=== PATIENT | female | born 1965 | race Caucasian/White ===

== ENCOUNTER → 2017-01-10 | Outpatient (CLI) | payer BC ==
[~2017-01-10] MED LIST: BENICAR; BPR150TCR; CIPR500T4 PO; DARI15TA4; FLUO20TA28; HYDR-3583 PO; LOSA1TAB19; MELO-195 PO; METF-761; METR500T21 PO; NAPR-243 PO; OLME1TAB14 PO; OLME1TAB25; ONDA4TAB11 PO; OXYC-12 PO; PHEN37.555 PO; PRM25T PO; SOLI10TA4 PO; WELLBUTRIN; [UNRECOGNIZED DRUG - OTHER]
--- NOTE | 2017-01-10 13:22 | Diagnostic Imaging Report ---
EXAMINATION: Bilateral screening mammogram 2D views with tomosynthesis. The current study was also evaluated with a Computer Aided Detection (CAD) system. INDICATION: Screening. PERSONAL HISTORY: No current complaints stated on the questionnaire. COMPARISON: 12/21/2015. FINDINGS: The breasts are composed of heterogeneously dense parenchyma which may decrease mammographic sensitivity. Scattered benign-appearing calcifications are seen. Allowing for technique and positional differences, no suspicious change is seen. IMPRESSION: Dense breasts with no definite change. ACR BI-RADS Category 2: Benign findings. Result letter will be mailed to the patient. Note: At least 10% of breast cancer is not imaged by mammography. Dictated by: Dictated on workstation # [id number]
== END ==
LOC: RAD 07:29
PROVIDERS: ATTEND Family Medicine
DX: Z12.31 Encounter for screening mammogram for malignant neoplasm of breast (principal)
CPT/HCPCS: 77067

== ENCOUNTER 2017-04-17 08:10 | Emergency (ER) | payer BC ==
[~2017-04-17] VITALS: Ht 167.6 cm; Wt 90.7 kg
[~2017-04-17 08:10] MED LIST changes: -LOSA1TAB19; +LOSA1TAB26
[2017-04-17] MEDS ORDERED: GABAPENTIN 300 MG (NEURONTIN) CAP PO ONE ×2 (08:45→12:00)
[2017-04-17 10:00] LABS: BASOPHILS # (AUTO) 0.1 10^3/uL (0.0-0.1); BASOPHILS % (AUTO) 1 % (0-10); EOSINOPHILS # (AUTO) 0.2 10^3/uL (0.0-0.3); EOSINOPHILS % (AUTO) 2 % (0-10); HEMATOCRIT 42 % (35-52); HEMOGLOBIN 14.9 G/DL (11.5-16.0); LYMPHOCYTES # (AUTO) 2.7 X 10^3 (1.0-4.0); LYMPHOCYTES % (AUTO) 31 % (12-44); MEAN CORPUSCULAR HEMOGLOBIN 31 PG (25-34); MEAN CORPUSCULAR HGB CONC 35 G/DL (32-36); MEAN CORPUSCULAR VOLUME 89 FL (80-99); MEAN PLATELET VOLUME 8.9 FL (7.4-10.4); MONOCYTES # (AUTO) 0.6 X 10^3 (0.0-1.0); MONOCYTES % (AUTO) 7 % (0-12); NEUTROPHILS # (AUTO) 5.2 X 10^3 (1.8-7.8); NEUTROPHILS % (AUTO) 60 % (42-75); PLATELET COUNT 440 10^3/uL (130-400); RED BLOOD COUNT 4.78 10^6/uL (4.35-5.85); RED CELL DISTRIBUTION WIDTH 12.9 % (10.0-14.5); WHITE BLOOD COUNT 8.6 10^3/uL (4.3-11.0)
[2017-04-17 10:18] LABS: ALANINE AMINOTRANSFERASE 53 U/L (0-55); ALBUMIN 4.6 GM/DL (3.2-4.5); ALKALINE PHOSPHATASE 134 U/L (40-136); BILIRUBIN,TOTAL 0.5 MG/DL (0.1-1.0); BUN/CREATININE RATIO 18; CALCIUM 9.6 MG/DL (8.5-10.1); CARBON DIOXIDE 19 MMOL/L (21-32); CHLORIDE 100 MMOL/L (98-107); CREATININE SERUM 0.79 MG/DL (0.60-1.30); GFR ESTIMATED > 60; GLUCOSE 330 MG/DL (70-105); POTASSIUM 4.6 MMOL/L (3.6-5.0); SODIUM 134 MMOL/L (135-145); TOTAL PROTEIN 8.2 GM/DL (6.4-8.2)
--- NOTE | 2017-04-17 13:25 | Diagnostic Imaging Report ---
PROCEDURE: MR imaging of the brain without contrast. TECHNIQUE: Multiplanar, multisequence MR imaging of the brain was performed without contrast. INDICATION: Right arm numbness and pain. FINDINGS: The ventricles and sulci are within normal limits. No hydrocephalus. There is no midline shift. There is no intracranial mass, hemorrhage or extra-axial fluid collection. There are no areas of diffusion restriction appreciated to suggest an acute CVA. There are few foci of abnormal increased T2 signal intensity within subcortical white matter. The frontal, ethmoid, sphenoid and maxillary sinuses are clear. Mastoid air cells are clear. Globes and intraorbital structures are unremarkable. The central arterial and dural venous sinus flow was are preserved. IMPRESSION: There are few foci of abnormal increased T2 signal intensity within the subcortical white matter bilaterally. These are nonspecific, however, likely reflect mild chronic microvascular ischemic disease. Otherwise unremarkable MRI brain. Dictated by: Dictated on workstation # [id number]
--- NOTE | 2017-04-17 13:26 | Diagnostic Imaging Report ---
PROCEDURE: MR imaging cervical spine without contrast. TECHNIQUE: Multiplanar/multisequence MR imaging of the cervical spine was performed without contrast. INDICATION: Right arm numbness and pain. FINDINGS: There is straightening of the normal cervical lordosis. The vertebral body heights are well-maintained. The prevertebral soft tissues are within normal limits. The posterior fossa is unremarkable. C2-3 is unremarkable. C3-4 is unremarkable. At C4-5, there is some mild broad-based annular bulging resulting in slight effacement of the ventral thecal sac. At C5-6, there is some annular bulging and bilateral uncovertebral joint hypertrophy. There is slight effacement of the ventral thecal sac and mild left neuroforaminal encroachment. At C6-7, there is broad-based annular bulging and bilateral uncovertebral joint hypertrophy, right greater than left. There is slight effacement of the ventral thecal sac with narrowing of the AP diameter of the spinal canal to approximately 9.4 mm. There is moderate right and mild left neuroforaminal encroachment. C7-T1 is unremarkable. There is no focal disc extrusion or high-grade spinal stenosis. IMPRESSION: Mild multilevel lower cervical degenerative disc disease as detailed above. Dictated by: Dictated on workstation # [id number]
[2017-04-17] MEDS ORDERED: methylPREDNISolone 125 MG (Solu-MEDROL) VIAL IVP ONE (14:00)
[2017-04-17] MEDS ORDERED: fentaNYL INJECTION 100 MCG/2 ML AMP IVP ONE (14:00)
--- NOTE | 2017-04-17 14:16 | ED Neurological Problem ---
General Chief Complaint: Upper Extremity Stated Complaint: RT ARM NUMBNESS AND PAIN Nursing Triage Note: c/o pain/numbness to arm with radiation down to right hand. Onset 2 weeks ago. Symptoms started right axilla area and has progressively worsened. Denies recent neck injury or known cervical disease. Denies swelling of right upper extremity. Nursing Sepsis Screen: No Definite Risk Source: patient Exam Limitations: no limitations History of Present Illness Date Seen by Provider: Apr 17, 2017 Time Seen by Provider: 08:22 Initial Comments This 51-year-old woman presents to emergency room with complaints of 3 weeks of right upper extremity numbness and pain. It started in the central fingers and expanded to the other fingers. Arm pain started toward the inner arm and then spread throughout the arm and up into the shoulder. It extends all the way to the right scapula. She states that the pain now feels deep, "to the bone". She has no history of injury. All fingers now have paresthesia. She saw a chiropractor recently but manipulation therapy did not help. She used a Medrol Dosepak that she had at home which was also not helpful. She denies any neck pain or other symptoms. Patient is in distress and tearful due to the pain. She implies that she cannot bear the pain and paresthesias and would consider ending her life if she doesn't get relief. Patient has sensitivities to multiple pain medications which exacerbate migraines. Allergies and Home Medications Allergies Coded Allergies: Penicillins (Unverified Allergy, Unknown, HIVES, 06/20/14) aspirin (Verified Allergy, Unknown, 05/18/05) codeine (Verified Allergy, Unknown, 05/18/05) topiramate (Verified Allergy, Unknown, 05/18/05) Home Medications Ciprofloxacin HCl 500 Mg Tablet, 500 MG PO BID, #14 Prescribed by: PAKO CHAPARRO on 02/02/16 0643 Fluoxetine HCl 20 Mg Tablet, #30 (Reported) Losartan/Hydrochlorothiazide 1 Each Tablet, #90 (Reported) Metformin HCl 1,000 Mg [id number], #30 (Reported) Metronidazole 500 Mg Tablet, 500 MG PO BID, #14 Prescribed by: PAKO CHAPARRO on 02/02/16 0643 Ondansetron 4 Mg Tab.rapdis, 4 MG PO Q6H PRN for NAUSEA/VOMITING, #8 Prescribed by: PAKO CHAPARRO on 02/02/16 0643 Phentermine Hcl 37.5 Mg Capsule, 37.5 MG PO DAILY, (Reported) Prednisone 20 Mg Tab, 40 MG PO DAILY, #8 Prescribed by: EDWARD BRAND on 04/17/17 1417 Tapentadol HCl 50 Mg Tablet, 1-2 MG PO Q6H PRN for PAIN-MODERATE TO SEVERE, #20 Prescribed by: EDWARD BRAND on 04/17/17 1417 Tramadol HCl 50 Mg Tablet, 1-2 MG PO Q6H PRN for PAIN-MODERATE TO SEVERE, #20 Prescribed by: EDWARD BRAND on 04/17/17 1417 Constitutional: no symptoms reported Eyes: No Symptoms Reported Ears, Nose, Mouth, Throat: no symptoms reported Respiratory: no symptoms reported Cardiovascular: no symptoms reported Gastrointestinal: no symptoms reported Genitourinary: no symptoms reported Musculoskeletal: see HPI Skin: no symptoms reported Psychiatric/Neurological: See HPI Endocrine: No Symptoms Reported Past [id number] Hx Patient Social History Alcohol Use: Denies Use Recreational Drug Use: No Recent Foreign Travel: No Contact w/Someone Who Travel: No Recent Infectious Disease Expo: No Recent Hopitalizations: No Immunizations Up To Date Date of Influenza Vaccine: Dec 21, 2015 Seasonal Allergies Seasonal Allergies: No Surgeries History of Surgeries: Yes Surgeries: Appendectomy, Hysterectomy Respiratory History of Respiratory Disorde: No Cardiovascular History of Cardiac Disorders: Yes Cardiac Disorders: Hypertension Neurological History of Neurological Disord: No Reproductive System : No Hx Reproductive Disorders: No 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 Genitourinary History of Genitourinary Disor: No Gastrointestinal History of Gastrointestinal Di: Yes Gastrointestinal Disorders: Colitis Musculoskeletal History of Musculoskeletal Dis: No Endocrine History of Endocrine Disorders: No HEENT History of HEENT Disorders: No Loss of Vision: Denies Cancer History of Cancer: Yes Cancer: Skin (basal cell carcinoma of the face) Psychosocial History of Psychiatric Problem: No Family Medical History Family Medial History: Alcoholism 19 FATHER G8 BROTHER G8 SISTER Arthritis 19 FATHER 19 MOTHER G8 BROTHER G8 SISTER Cardiovascular disease 19 FATHER 19 MOTHER G8 BROTHER G8 SISTER Colon cancer 19 FATHER Diabetes mellitus 19 FATHER Hypertension 19 FATHER 19 MOTHER G8 BROTHER G8 SISTER Infertility No Family History of: AIDS Abdominal aortic aneurysm Brannon's disease Alzheimer's disease Aphasia Asthma Cancer of mouth Completed stroke Congenital disease Congenital heart disease Coronary thrombosis Dementia Kidney disease Myocardial infarction Parkinson's disease Prostate cancer Psychosocial problem Respiratory disorder Seizure disorder Severe allergy Thyroid disease Tuberculosis Physical Exam Vital Signs Vital Sign - Last 12Hours 04/17/17 08:32 Temp 97.2 Pulse 113 Resp 18 B/P (MAP) 144/106 (119) Pulse Ox 98 O2 Delivery Room Air Capillary Refill : Less Than 3 Seconds General Appearance: WD/WN, moderate distress HEENT: PERRL/EOMI, normal ENT inspection, pharynx normal Neck: supple, normal inspection Respiratory: lungs clear, normal breath sounds, no respiratory distress, no accessory muscle use Cardiovascular: regular rate, rhythm, no edema, no murmur Gastrointestinal: normal bowel sounds, non tender, soft Back: normal inspection Extremities: normal inspection, no pedal edema, other (no swelling, heat, or erythema of the right upper extremity. The entire right upper extremity is diffusely tender to palpation. Radial pulse and capillary refill are normal. 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, no motor/sensory deficits, alert, normal mood/affect, oriented x 3 Crainal Nerves: normal hearing, normal speech, PERRL Coordination/Gait: normal finger to nose, normal gait Motor/Sensory: no motor deficit, no sensory deficit Skin: normal color, warm/dry Progress/Results/Core Measures Results/Orders Lab Results Laboratory Tests Test 04/17/17 09:52 Range/Units White Blood Count 8.6 4.3-11.0 10^3/uL Red Blood Count 4.78 4.35-5.85 10^6/uL Hemoglobin 14.9 11.5-16.0 G/DL Hematocrit 42 35-52 % Mean Corpuscular Volume 89 80-99 FL Mean Corpuscular Hemoglobin 31 25-34 PG Mean Corpuscular Hemoglobin Concent 35 32-36 G/DL Red Cell Distribution Width 12.9 10.0-14.5 % Platelet Count 440 H 130-400 10^3/uL Mean Platelet Volume 8.9 7.4-10.4 FL Neutrophils (%) (Auto) 60 42-75 % Lymphocytes (%) (Auto) 31 12-44 % Monocytes (%) (Auto) 7 0-12 % Eosinophils (%) (Auto) 2 0-10 % Basophils (%) (Auto) 1 0-10 % Neutrophils # (Auto) 5.2 1.8-7.8 X 10^3 Lymphocytes # (Auto) 2.7 1.0-4.0 X 10^3 Monocytes # (Auto) 0.6 0.0-1.0 X 10^3 Eosinophils # (Auto) 0.2 0.0-0.3 10^3/uL Basophils # (Auto) 0.1 0.0-0.1 10^3/uL D-Dimer 0.41 0.00-0.49 UG/ML Sodium Level 134 L 135-145 MMOL/L Potassium Level 4.6 3.6-5.0 MMOL/L Chloride Level 100 98-107 MMOL/L Carbon Dioxide Level 19 L 21-32 MMOL/L Anion Gap 15 H 5-14 MMOL/L Blood Urea Nitrogen 14 7-18 MG/DL Creatinine 0.79 0.60-1.30 MG/DL Estimat Glomerular Filtration Rate > 60 BUN/Creatinine Ratio 18 Glucose Level 330 H 70-105 MG/DL Calcium Level 9.6 8.5-10.1 MG/DL Total Bilirubin 0.5 0.1-1.0 MG/DL Aspartate Amino Transf (AST/SGOT) 24 5-34 U/L Alanine Aminotransferase (ALT/SGPT) 53 0-55 U/L Alkaline Phosphatase 134 40-136 U/L Total Protein 8.2 6.4-8.2 GM/DL Albumin 4.6 H 3.2-4.5 GM/DL My Orders Orders - EDWARD BENAVIDEZ MD Mri Brain W/O Contrast (04/17/17 08:44) Gabapentin Capsule/Tablet (Neurontin Cap (04/17/17 08:45) Cbc With Automated Diff (04/17/17 08:45) Comprehensive Metabolic Panel (04/17/17 08:45) Fibrin Degradation Products (04/17/17 08:45) Saline Lock/Iv-Start (04/17/17 08:45) Mri Cervical Spine W/O Contras (04/17/17 08:57) Gabapentin Capsule/Tablet (Neurontin Cap (04/17/17 12:00) Fentanyl Injection (Sublimaze Injection (04/17/17 14:00) Methylprednisolone Sod Succ (Solu-Medrol (04/17/17 14:00) Medications Given in ED Current Medications Medications Dose Ordered Sig/Demetrius Route Start Time Stop Time Status Last Admin Dose Admin Fentanyl Citrate 100 mcg ONCE ONCE IVP 04/17/17 14:00 04/17/17 14:01 DC 04/17/17 14:02 100 MCG Gabapentin 300 mg ONCE ONCE PO 04/17/17 08:45 04/17/17 08:46 DC 04/17/17 09:37 300 MG Gabapentin 300 mg ONCE ONCE PO 04/17/17 12:00 04/17/17 12:01 DC 04/17/17 14:03 300 MG Methylprednisolone Sodium Succinate 125 mg ONCE ONCE IVP 04/17/17 14:00 04/17/17 14:01 DC 04/17/17 14:02 125 MG Vital Signs/I&O Vital Sign - Last 12Hours 04/17/17 04/17/17 08:32 14:02 Temp 97.2 97.2 Pulse 113 Resp 18 B/P (MAP) 144/106 (119) Pulse Ox 98 O2 Delivery Room Air Blood Pressure Mean: 119 Progress Note : Progress Note After evaluation patient was felt to have a radicular problem. She is sensitive to multiple pain medications which exacerbate migraine problems. She was given gabapentin as an alternative. This did not really help her pain. She was given a second dose of gabapentin along with fentanyl Solu-Medrol 125 mg. This seemed to calm her pain. We were able to obtain MRI of the head and cervical spine. MRI results were discussed with Dr. Singh who believes her symptoms can be explained by disc disease and foraminal stenosis in the cervical spine. He believes this is correctable with surgery. He is working with his office to make arrangements to see her within the next 48 hours. Due to patient's sensitivities to Toradol and narcotics, he recommended trying Ultram or Nucynta. Diagnostic Imaging Diagonstic Imaging: MRI Plain Films/CT/US/NM/MRI: c-spine, head Comments MRI of the brain and C-spine viewed by me, report reviewed, and discussed with Dr. Bernstein. See report below: NAME: MANDI CARBAJAL MED REC#: [id number] PT STATUS: DEP ER : 1965 PHYSICIAN: EDWARD BENAVIDEZ MD ADMIT DATE: 04/17/17/ER Signed Date of Exam: 04/17/17 MRI CERVICAL SPINE W/O CONTRAS PROCEDURE: MR imaging cervical spine without contrast. TECHNIQUE: Multiplanar/multisequence MR imaging of the cervical spine was performed without contrast. INDICATION: Right arm numbness and pain. FINDINGS: There is straightening of the normal cervical lordosis. The vertebral body heights are well-maintained. The prevertebral soft tissues are within normal limits. The posterior fossa is unremarkable. C2-3 is unremarkable. C3-4 is unremarkable. At C4-5, there is some mild broad-based annular bulging resulting in slight effacement of the ventral thecal sac. At C5-6, there is some annular bulging and bilateral uncovertebral joint hypertrophy. There is slight effacement of the ventral thecal sac and mild left neuroforaminal encroachment. At C6-7, there is broad-based annular bulging and bilateral uncovertebral joint hypertrophy, right greater than left. There is slight effacement of the ventral thecal sac with narrowing of the AP diameter of the spinal canal to approximately 9.4 mm. There is moderate right and mild left neuroforaminal encroachment. C7-T1 is unremarkable. There is no focal disc extrusion or high-grade spinal stenosis. IMPRESSION: Mild multilevel lower cervical degenerative disc disease as detailed above. Dictated by: Dictated on workstation # [id number] Dict: 04/17/17 1256 Trans: 04/17/17 1434 Interpreted by: MARISA BENNETT MD Electronically signed by: MARISA BENNETT MD 04/17/17 1434 NAME: MANDI CARBAJAL [facility] REC#: [id number] PT STATUS: DEP ER : 1965 PHYSICIAN: EDWARD BENAVIDEZ MD ADMIT DATE: 04/17/17/ER Signed Date of Exam: 04/17/17 MRI BRAIN W/O CONTRAST PROCEDURE: MR imaging of the brain without contrast. TECHNIQUE: Multiplanar, multisequence MR imaging of the brain was performed without contrast. INDICATION: Right arm numbness and pain. FINDINGS: The ventricles and sulci are within normal limits. No hydrocephalus. There is no midline shift. There is no intracranial mass, hemorrhage or extra-axial fluid collection. There are no areas of diffusion restriction appreciated to suggest an acute CVA. There are few foci of abnormal increased T2 signal intensity within subcortical white matter. The frontal, ethmoid, sphenoid and maxillary sinuses are clear. Mastoid air cells are clear. Globes and intraorbital structures are unremarkable. The central arterial and dural venous sinus flow was are preserved. IMPRESSION: There are few foci of abnormal increased T2 signal intensity within the subcortical white matter bilaterally. These are nonspecific, however, likely reflect mild chronic microvascular ischemic disease. Otherwise unremarkable MRI brain. Dictated by: Dictated on workstation # [id number] Dict: 04/17/17 1318 Trans: 04/17/17 1434 Interpreted by: MARISA BENNETT MD Electronically signed by: MARISA BENNETT MD 04/17/17 1434 Departure Impression Impression: Primary Impression: Cervical radiculopathy Additional Impression: Arm paresthesia, right Disposition: 01 HOME, SELF-CARE Condition: Improved Departure-Patient Inst. Decision time for Depature: 14:11 Referrals: AWILDA BERNSTEIN MD, DANIEL J MD (PCP/Family) Primary Care Physician Patient Instructions: Radiculopathy Add. Discharge Instructions: You may try tramadol or Nucynta for pain control. Use the prednisone as prescribed. You may take your first dose this evening and your next dose tomorrow morning. Follow-up with Dr. Singh as soon as possible. Return to the ER if you have uncontrolled symptoms. You may again try career guidance counselor and traction. Plan on seeing Dr. Bernstein Monday at 08:00 unless otherwise instructed. Call his office to confirm appointment time. All discharge instructions reviewed with patient and/or family. Voiced understanding. Scripts Prednisone (Prednisone) 20 Mg Tab 40 MG PO DAILY, #8 TAB Prov: EDWARD BENAVIDEZ MD 04/17/17 Tramadol HCl (Ultram) 50 Mg Tablet 1-2 MG PO Q6H Y for PAIN-MODERATE TO SEVERE, #20 TAB Prov: EDWARD BENAVIDEZ MD 04/17/17 Tapentadol HCl (Nucynta) 50 Mg Tablet 1-2 MG PO Q6H Y for PAIN-MODERATE TO SEVERE, #20 TAB Prov: EDWARD BENAVIDEZ MD 04/17/17 Copy Copies To 1: AWILDA BERNSTEIN MD Copies To 2: RAHEL PATIÑO MD, JOSHUA T MD Apr 17, 2017 14:16
[2017-04-17] MEDS ORDERED: PRD20T PO (14:17)
[2017-04-17] MEDS ORDERED: TRAM-42 PO (14:17)
[2017-04-17] MEDS ORDERED: TAPE50TA2 PO (14:17)
[2017-04-17 14:26] VITALS: BP 136/90
== END 2017-04-17 14:26 | disposition home or self-care (01) ==
LOC: EDUNIT# 08:10 → ER 08:11
DX: M54.12 Radiculopathy, cervical region (principal); R20.2 Paresthesia of skin; I10 Essential (primary) hypertension; Z85.828 Personal history of other malignant neoplasm of skin; Z80.0 Family history of malignant neoplasm of digestive organs; Z82.49 Family history of ischemic heart disease and other diseases of the circulatory system; Z87.19 Personal history of other diseases of the digestive system; Z88.0 Allergy status to penicillin; Z88.5 Allergy status to narcotic agent; Z88.6 Allergy status to analgesic agent; Z88.8 Allergy status to other drugs, medicaments and biological substances; Z79.84 Long term (current) use of oral hypoglycemic drugs; Z79.52 Long term (current) use of systemic steroids; Z90.710 Acquired absence of both cervix and uterus; Z90.49 Acquired absence of other specified parts of digestive tract
CPT/HCPCS: 36415; 70551; 72141; 80053; 85025; 85379; 96374; 96375

== ENCOUNTER → 2017-05-24 | Outpatient (CLI) | payer BC ==
[~2017-05-24] MED LIST changes: +PRD20T PO; +TAPE50TA2 PO; +TRAM-42 PO
--- NOTE | 2017-05-24 15:39 | Diagnostic Imaging Report ---
INDICATION: Cervical spine fusion. TIME OF EXAM: 3:30 p.m. FINDINGS: A single lateral view of the cervical spine demonstrates postop changes of ACDF with anterior plate and screws transfixing the C6-7 level. The hardware appears intact without fracture or loosening. Alignment is normal. IMPRESSION: C6-7 ACDF. Dictated by: Dictated on workstation # [id number]
== END ==
LOC: RAD 14:42
PROVIDERS: ATTEND Neurological Surgery
DX: M43.22 Fusion of spine, cervical region (principal)
CPT/HCPCS: 72020

== ENCOUNTER → 2017-07-05 | Outpatient (CLI) | payer BC ==
--- NOTE | 2017-07-05 15:27 | Diagnostic Imaging Report ---
INDICATION: Cervical spine surgery, follow-up. TIME OF EXAM: 03:17 p.m. Correlation is made with prior study from 05/24/2017. FINDINGS: Flexion and extension lateral views of the cervical spine were obtained. There are postop changes of ACDF with anterior plate and screws transfixing the C6-C7 level. The hardware appears intact. No fracture or loosening is seen. There appears to be osseous bridging at the C6-C7 disc space. Alignment is normal during flexion and extension with no abnormal motion detected. The prevertebral tissues are normal. No fractures are seen. IMPRESSION: C6-C7 ACDF. No complicating features are detected. Dictated by: Dictated on workstation # [id number]
== END ==
LOC: RAD 14:47
PROVIDERS: ATTEND Neurological Surgery
DX: Z48.89 Encounter for other specified surgical aftercare (principal)
CPT/HCPCS: 72040

== ENCOUNTER 2017-08-20 18:03 | Emergency (ER) | payer BC ==
[~2017-08-20] VITALS: Ht 170.2 cm; Wt 93.0 kg
[2017-08-20] MEDS ORDERED: diphenhydrAMINE 50 MG/ML INJ (BENADRYL) ONE (18:07)
[2017-08-20] MEDS ORDERED: fentaNYL INJECTION 100 MCG/2 ML AMP ONE ×2 (18:07→18:08)
[2017-08-20] MEDS ORDERED: NS IV 1000 ML 1,000 ML ONE (18:07)
[2017-08-20] MEDS ORDERED: PROMETHAZINE INJ 25 MG/ML (PHENERGAN) AMP ONE (18:07)
--- NOTE | 2017-08-20 18:26 | ED Headache ---
General Chief Complaint: Head/Cervical Problems Stated Complaint: MIGRAINE Nursing Triage Note: pt c/o migraine that began last night. pt c/o vomiting. pain / Nursing Sepsis Screen: No Definite Risk Source: patient, family Exam Limitations: no limitations History of Present Illness Date Seen by Provider: Aug 20, 2017 Time Seen by Provider: 18:02 Initial Comments Ear with complaint of migraine that started late last night/early this morning. Complains of nausea and vomiting with severe pain that is central and frontal. Has history of migraines but they're infrequent. Does have difficulty when these occur because they're difficult to bea. In the past, Phenergan, Benadryl and fentanyl with fluids works very well without rebound. Does report trying ibuprofen, tramadol and hydrocodone today and that has not worked. She has tried other supportive therapy including dark room, quiet area and time and these also have failed. Timing/Duration: constant, other (12-24 hours) Severity/Quality: moderate, severe Location: frontal Prior Headaches/Recent Trauma: occasional headaches Modifying Factors: worse with exposure to light Associated Symptoms: No confusion, No facial pain; nausea/vomiting; No stiff neck; vision changes Allergies and Home Medications Allergies Coded Allergies: Penicillins (Unverified Allergy, Unknown, HIVES, 06/20/14) aspirin (Verified Allergy, Unknown, 05/18/05) codeine (Verified Allergy, Unknown, 05/18/05) topiramate (Verified Allergy, Unknown, 05/18/05) Home Medications Ciprofloxacin HCl 500 Mg Tablet, 500 MG PO BID Prescribed by: PAKO CHAPARRO on 02/02/16642 Metronidazole 500 Mg Tablet, 500 MG PO BID Prescribed by: PAKO CHAPARRO on 02/02/16642 Ondansetron 4 Mg Tab.rapdis, 4 MG PO Q6H PRN for NAUSEA/VOMITING Prescribed by: PAKO CHAPARRO on 02/02/16642 Phentermine Hcl 37.5 Mg Capsule, 37.5 MG PO DAILY, (Reported) Prednisone 20 Mg Tab, 40 MG PO DAILY Prescribed by: EDWARD BRAND on 04/17/17 141 Tapentadol HCl 50 Mg Tablet, 1-2 MG PO Q6H PRN for PAIN-MODERATE TO SEVERE Prescribed by: EDWARD BRAND on 1/29/18 1417 Tramadol HCl 50 Mg Tablet, 1-2 MG PO Q6H PRN for PAIN-MODERATE TO SEVERE Prescribed by: EDWARD BRAND on 04/17/17 1417 Patient Home Medication List Home Medication List Reviewed: Yes (only takes metformin, fluoxetine and blood pressure medicine regularly. ) Review of Systems Constitutional: see HPI, chills; No fever; weakness Eyes: Denies Blindness; Photophobia Ears, Nose, Mouth, Throat: no symptoms reported Respiratory: No cough, No short of breath Cardiovascular: No chest pain, No edema; syncope (near syncope) Gastrointestinal: No abdominal pain; nausea, vomiting Genitourinary: no symptoms reported Musculoskeletal: No back pain; muscle weakness (is weak all over) Skin: no symptoms reported Psychiatric/Neurological: Headache; Denies Numbness All Other Systems Reviewed Negative Unless Noted: Yes Past Eecdqyj-Jwtzob-Iwmpdt Hx Past Med/Social Hx: Reviewed Nursing Past Med/Soc Hx Patient Social History Alcohol Use: Denies Use Recreational Drug Use: No Smoking Status: Never a Smoker Recent Foreign Travel: No Contact w/Someone Who Travel: No Recent Infectious Disease Expo: No Recent Hopitalizations: No Immunizations Up To Date Date of Influenza Vaccine: Dec 21, 2015 Seasonal Allergies Seasonal Allergies: No Past Medical History Surgeries: Yes Appendectomy, Hysterectomy Respiratory: No Cardiac: Yes Hypertension Neurological: No Reproductive Disorders: No 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 Genitourinary: No Gastrointestinal: Yes Colitis Musculoskeletal: No Endocrine: No HEENT: No Loss of Vision: Denies Cancer: Yes Skin Psychosocial: No Integumentary: No Blood Disorders: No Family Medical History Reviewed Nursing Family Hx Alcoholism 19 FATHER G8 BROTHER G8 SISTER Arthritis 19 FATHER 19 MOTHER G8 BROTHER G8 SISTER Cardiovascular disease 19 FATHER 19 MOTHER G8 BROTHER G8 SISTER Colon cancer 19 FATHER Diabetes mellitus 19 FATHER Hypertension 19 FATHER 19 MOTHER G8 BROTHER G8 SISTER Infertility No Family History of: AIDS Abdominal aortic aneurysm Brannon's disease Alzheimer's disease Aphasia Asthma Cancer of mouth Completed stroke Congenital disease Congenital heart disease Coronary thrombosis Dementia Kidney disease Myocardial infarction Parkinson's disease Prostate cancer Psychosocial problem Respiratory disorder Seizure disorder Severe allergy Thyroid disease Tuberculosis Physical Exam Vital Signs Vital Signs - First Documented 08/20/17 18:03 Temp 97.3 Pulse 84 Resp 12 B/P (MAP) 109/66 (80) O2 Delivery Room Air Capillary Refill : Less Than 3 Seconds General Appearance: WD/WN, no apparent distress HEENT: PERRL/EOMI, pharynx normal Neck: full range of motion, supple Cardiovascular: regular rate, rhythm, no murmur Respiratory: lungs clear, normal breath sounds Gastrointestinal: non tender, soft Psychiatric: alert, oriented x 3 Crainal Nerves: normal speech, PERRL Coordination/Gait: normal gait Skin: normal color, warm/dry Progress/Results/Core Measures Results/Orders My Orders Orders - PAKO CHAPARRO MD Fentanyl Injection (Sublimaze Injection (08/20/17 18:07) Diphenhydramine Injection (Benadryl Inje (08/20/17 18:07) Promethazine Injection (Phenergan Injec (08/20/17 18:07) Ns Iv 1000 Ml (Sodium Chloride 0.9%) (08/20/17 18:07) Fentanyl Injection (Sublimaze Injection (08/20/17 18:08) Medications Given in ED Current Medications Medications Dose Ordered Sig/Demetrius Route Start Time Stop Time Status Last Admin Dose Admin Diphenhydramine HCl 50 mg STK-MED ONCE .ROUTE 08/20/17 18:07 08/20/17 18:08 DC 08/20/17 18:10 50 MG Fentanyl Citrate 100 mcg STK-MED ONCE .ROUTE 08/20/17 18:07 08/20/17 18:08 DC 08/20/17 18:10 100 MCG Fentanyl Citrate 100 mcg STK-MED ONCE .ROUTE 08/20/17 18:08 08/20/17 18:10 DC 08/20/17 18:10 50 MCG Promethazine HCl 25 mg STK-MED ONCE .ROUTE 08/20/17 18:07 08/20/17 18:08 DC 08/20/17 18:10 25 MG Sodium Chloride 1,000 ml @ ud STK-MED ONCE .ROUTE 08/20/17 18:07 08/20/17 18:08 DC 08/20/17 18:10 1,000 MLS/HR Vital Signs/I&O 08/20/17 18:03 Temp 97.3 Pulse 84 Resp 12 B/P (MAP) 109/66 (80) O2 Delivery Room Air Blood Pressure Mean: 80 Progress Progress Note : Progress Note Seen and evaluated on arrival. IV, normal saline 1 L bolus, Phenergan 25 mg IV , Benadryl 25 mg IV and fentanyl 150 g IV ordered. While this is outside of typical therapy. Has been effective for her in the past and patient is low risk for abuse or other concerns. This was ordered and given and we did have excellent results without adverse effect. We'll continue to monitor through fluid administration. 1854: Fluids complete and patient is doing much better. Discharged home with return precautions. Patient and family verbalize understanding instructions and agreement with plan. Departure Impression Primary Impression: Migraine Qualified Codes: G43.009 - Migraine without aura, not intractable, without status migrainosus Disposition: HOME, SELF-CARE Condition: Improved Departure-Patient Inst. Decision time for Depature: 18:54 Referrals: RAHEL PATIÑO MD (PCP/Family) Primary Care Physician Patient Instructions: Migraine Headache (DC) Add. Discharge Instructions: All discharge instructions reviewed with patient and/or family. Voiced understanding. Follow-up with your Dr. in a few days for recheck. Call me (Taiwo) for any concerns. Return for worse pain, fever, vomiting, weakness, breathing problems or other concerns as needed. PAKO CHAPARRO MD Aug 20, 2017 18:26
[2017-08-20 19:03] VITALS: BP 129/70
== END 2017-08-20 19:03 | disposition home or self-care (01) ==
LOC: EDUNIT# 18:03 → ER 18:03
DX: G43.909 Migraine, unspecified, not intractable, without status migrainosus (principal); I10 Essential (primary) hypertension; Z85.828 Personal history of other malignant neoplasm of skin; Z80.0 Family history of malignant neoplasm of digestive organs; Z82.49 Family history of ischemic heart disease and other diseases of the circulatory system; Z87.19 Personal history of other diseases of the digestive system; Z88.0 Allergy status to penicillin; Z88.6 Allergy status to analgesic agent; Z88.5 Allergy status to narcotic agent; Z88.8 Allergy status to other drugs, medicaments and biological substances; Z79.52 Long term (current) use of systemic steroids; Z90.89 Acquired absence of other organs; Z90.710 Acquired absence of both cervix and uterus
CPT/HCPCS: 96361; 96374; 96375; 99282

== ENCOUNTER 2018-04-19 13:51 | Outpatient (CLI) | payer BC ==
[~2018-04-19 13:51] MED LIST changes: +METR-145 PO; -METR500T21 PO
== END 2018-04-19 14:33 | disposition home or self-care (01) ==
LOC: SLEEP 13:51
PROVIDERS: ATTEND Family Medicine
DX: G47.33 Obstructive sleep apnea (adult) (pediatric) (principal); R06.83 Snoring; I10 Essential (primary) hypertension

== ENCOUNTER → 2018-11-15 | Outpatient (CLI) | payer BC ==
--- NOTE | 2018-11-16 20:24 | Diagnostic Imaging Report ---
Digital mammogram bilateral screening with 3 D tomosynthesis and CAD The current study was also evaluated with a Computer Aided Detection (CAD) system. 3-D tomosynthesis was also performed and reviewed. This study was compared to the prior exams of 01/10/2017 and 12/21/2015. At this time, there are no current complaints. FINDINGS: The fibroglandular tissue in both breasts is heterogeneously dense. This does limit the sensitivity of this exam. Overall, there does not appear to have been any significant change when compared to the prior study. No primary or secondary sign of malignancy is noted. IMPRESSION: There is no radiographic evidence for malignancy. ACR BI-RADS Category 1: Negative. Result letter will be mailed to the patient. Note: At least 10% of breast cancer is not imaged by mammography. Dictated by: Dictated on workstation # [id number]
== END ==
LOC: RAD 15:31
PROVIDERS: ATTEND Family Medicine
DX: Z12.31 Encounter for screening mammogram for malignant neoplasm of breast (principal)
CPT/HCPCS: 77067

== ENCOUNTER → 2019-03-07 | Outpatient (CLI) | payer BC ==
[~2019-03-07] MED LIST changes: +CATHETER FLUSH 10 ML SYR IV PRN; +HOLD METFORMIN - RECEIVED CONTRAST 20 ML VIAL IV SCH; +IOHEXOL 350 MG/ML 100 ML (OMNIPAQUE 350) VIAL IV ONE; +NS 100 ML (IVPB) BAG IV ONE
--- NOTE | 2019-03-07 18:48 | Diagnostic Imaging Report ---
PROCEDURE: CT head with and without contrast. TECHNIQUE: Multiple contiguous axial images were obtained through the brain before and after the administration of intravenous contrast. Auto Exposure Controls were utilized during the CT exam to meet ALARA standards for radiation dose reduction. INDICATION: Upper and lower jaw pain. Trigeminal neuralgia. COMPARISON: Correlation is made with prior MRI from April 17, 2017. FINDINGS: There are no CT findings of an acute intracranial abnormality. There is no evidence of intracranial hemorrhage. There is no mass effect or shift. There is no hydrocephalus. There is no abnormal extra-axial fluid collection. Basilar cisterns are patent. Posterior fossa is unremarkable by CT. Postcontrast imaging demonstrates no evidence of pathologic intracranial enhancement. There is flow within the major intracranial vessels, and the dural venous sinuses appear patent. The mastoid air cells appear clear, and the visualized portions of the paranasal sinuses appear clear. IMPRESSION: 1. No CT evidence of an acute intracranial abnormality. 2. No findings of pathologic intracranial enhancement. Dictated by: Dictated on workstation # [id number]
== END ==
LOC: RAD 17:24
PROVIDERS: ATTEND Specialist
DX: G50.0 Trigeminal neuralgia (principal)
CPT/HCPCS: 70470

== ENCOUNTER → 2019-08-16 | Outpatient (CLI) | payer BC ==
[~2019-08-16] MED LIST changes: -CATHETER FLUSH 10 ML SYR IV PRN; -HOLD METFORMIN - RECEIVED CONTRAST 20 ML VIAL IV SCH; -IOHEXOL 350 MG/ML 100 ML (OMNIPAQUE 350) VIAL IV ONE; -NS 100 ML (IVPB) BAG IV ONE
== END ==
LOC: LABNPT 13:14
PROVIDERS: ATTEND Specialist
DX: Z11.59 Encounter for screening for other viral diseases (principal)
CPT/HCPCS: 87635

== ENCOUNTER → 2019-11-07 | Outpatient (CLI) | payer BC | LOC: CARD 12:08 | PROVIDERS: ATTEND Internal Medicine Cardiovascular Disease | DX: E11.9 Type 2 diabetes mellitus without complications (principal); I11.9 Hypertensive heart disease without heart failure | CPT/HCPCS: 93306 ==

== ENCOUNTER → 2019-11-13 | Outpatient (CLI) | payer BC | LOC: LABNPT 05:53 | PROVIDERS: ATTEND Specialist | DX: Z20.828 Contact with and (suspected) exposure to other viral communicable diseases (principal) ==

== ENCOUNTER 2021-02-18 09:39 | Outpatient (CLI) | payer BC ==
[~2021-02-18] VITALS: Ht 170 cm; Wt 81.8 kg
[~2021-02-18 09:39] MED LIST changes: -CIPR500T4 PO; +CIPR500T5 PO; -METF-761; +METF-846
[2021-02-18] MEDS ORDERED: diphenhydrAMINE 50 MG/ML INJ (BENADRYL) IV PRN (10:00)
[2021-02-18] MEDS ORDERED: CASIRIVIMAB/IMDEVIMAB 1,200 MG in NS (IVPB) 250 ML IV ONE (10:00)
[2021-02-18] MEDS ORDERED: EPINEPHrine INJECTION 1 MG/ML AMP IM PRN (10:00)
[2021-02-18] MEDS ORDERED: ONDANSETRON 4 MG/2 ML (SDV) Z0FRAN IV PRN (10:00)
[2021-02-18] MEDS ORDERED: ACETAMINOPHEN 500 MG TAB (TYLENOL) PO PRN (10:00)
[2021-02-18 11:04] VITALS: BP 169/81
[2021-02-18 11:29] VITALS: BP 176/86
== END 2021-02-18 11:29 | disposition home or self-care (01) ==
LOC: INFUSION 09:39
PROVIDERS: ATTEND Nurse Practitioner Family
DX: U07.1 COVID-19 (principal)